=== PATIENT | female | born 1990 | race Caucasian/White ===

== ENCOUNTER 2023-06-20 18:50 | Observation (INO) | payer BC, SELFPAY ==
[2023-06-20 18:59] VITALS: BP 144/99; PULSE 79; RESP 28; TEMP 36.9; O2SAT 99; BMI 48.4
--- NOTE | 2023-06-20 19:27 | ED_ITS ---
HPI - Back Pain/Injury General Chief Complaint: Back Pain/Injury Stated Complaint: FLANK PAIN Time Seen by Provider: 06/20/23 19:26 Source: patient Source comment: Tearful Mode of arrival: Wheelchair Limitations: no limitations History of Present Illness HPI Narrative: presents complaining of left CVA pain. past history of kidney stones. pain radiates around to her groin. Pain associated with nausea and vomiting. States she is not . No urinary symptoms. No fever or chills. Related Data Home Medications Medication Instructions Recorded Confirmed buspirone 10 mg tablet 10 mg PO DAILY 06/20/23 06/20/23 cyanocobalamin (vitamin B-12) 1,000 mcg PO DAILY 06/20/23 06/20/23 1,000 mcg sublingual tablet venlafaxine 75 mg capsule,extended 75 mg PO DAILY 06/20/23 06/20/23 release 24 hr Allergies Allergy/AdvReac Type Severity Reaction Status Date / Time No Known Drug Allergies Allergy Verified 06/20/23 19:02 Review of Systems ROS Status of ROS 10 or more systems reviewed and unremarkable except as noted in history and below PFSH PFS Social History Smoking status: Current every day smoker Exam Constitutional Vital Signs, click to edit/add: Last Vital Signs Temp 98.4 F 06/20/23 18:59 Pulse 79 06/20/23 18:59 Resp 28 H 06/20/23 18:59 BP 144/99 H 06/20/23 18:59 Pulse Ox 99 06/20/23 18:59 O2 Del Method Room Air 06/20/23 18:59 Common normals: oriented x3 Other: mod distress. skin moist HENMT Common normals: normocephalic and head/scalp atraumatic Eye Common normals: EOMs intact bilaterally and conjunctivae normal Chest Common normals: inspection of chest normal, palpation of chest normal and inspection of breasts normal Respiratory Common normals: normal respiratory effort, no retractions and no use of accessory muscles Cardio Common normals: regular rate, regular rhythm, S1 normal heart sound and S2 normal heart sound GI Common normals: Normal to inspection, nondistended, normoactive bowel sounds present, soft to palpation and non-tender Back & Pelvis General back: CVA tenderness CVA tenderness: left Extremity Common normals: normal to inspection and full ROM Neuro Common normals: oriented x3, CN's II-XII intact bilaterally, moves all extremities and no focal motor deficits Psych Appearance: grossly normal Course Vital Signs Vital signs: Vital Signs Temperature 98.4 F 06/20/23 18:59 Pulse Rate 79 06/20/23 18:59 Respiratory Rate 28 H 06/20/23 18:59 Blood Pressure 144/99 H 06/20/23 18:59 Pulse Oximetry 99 06/20/23 18:59 Oxygen Delivery Method Room Air 06/20/23 18:59 Temperature 98.4 F 06/20/23 18:59 Pulse Rate 79 06/20/23 18:59 Respiratory Rate 28 H 06/20/23 18:59 Blood Pressure 144/99 H 06/20/23 18:59 Pulse Oximetry 99 06/20/23 18:59 Oxygen Delivery Method Room Air 06/20/23 18:59 MDM - Back Pain/Injury MDM Narrative Medical decision making narrative: patient presents with acute left CVA pain radiating into her groin. CT with evidence of 6.5mm stone left UVJ. Patient hydrated in the department and pain controlled. Patient was feeling better and even felt she could go home but when she changed position on the stretcher the pain has returned. UA with 10-20 WBC. Discussed with urologist Dr Patel and she will consult on the patient. Discussed with the Hospitalist Dr Barakat and the patient is accepted for admission Lab Data Labs: Lab Results 06/20/23 06/20/23 06/20/23 Range/Units 19:10 20:13 22:00 WBC 10.7 (4.0-11.0) 10^3/uL RBC 4.73 (4.20-5.40) 10^6/uL Hgb 13.4 (12.0-16.0) g/dL Hct 38.8 (36.0-48.0) % MCV 82.0 (81.0-99.0) fL MCH 28.3 (26.7-34.0) pg MCHC 34.5 (29.9-35.2) g/dL RDW 12.2 (11.0-15.0) % Plt Count 244 (150-450) 10^3/uL MPV 10.7 (9.5-13.5) fL Neut % (Auto) 58.0 (43.0-75.0) % Lymph % (Auto) 32.3 (20.5-60.0) % [place]ahan % (Auto) 6.9 (1.7-12.0) % Eos % (Auto) 2.0 (0.9-7.0) % Baso % (Auto) 0.5 (0.2-2.0) % Neut # (Auto) 6.2 (1.4-6.5) 10^3/uL Lymph # (Auto) 3.5 (1.2-3.8) 10^3/uL [place]ahan # (Auto) 0.7 (0.3-0.8) 10^3/uL Eos # (Auto) 0.2 (0.0-0.7) 10^3/uL Baso # (Auto) 0.1 (0.0-0.1) 10^3/uL Abs Immat Gran (auto) 0.03 (0.00-0.03) 10^3/uL Imm/Tot Granulo (auto) 0.3 (0.0-0.5) % Sodium 138 (136-145) mmol/L Potassium 3.8 (3.5-5.1) mmol/L Chloride 106 (98-107) mmol/L Carbon Dioxide 18.2 L (21.0-32.0) mmol/L Anion Gap 17.6 BUN 14.0 (7.0-18.0) mg/dL Creatinine 0.86 (0.55-1.02) mg/dL Est GFR ( Amer) >60 (>=60) Est GFR (Non-Af Amer) >60 (>=60) BUN/Creatinine Ratio 16.3 Glucose 94 (74-106) mg/dL Lactate 2.5 H* (0.4-2.0) mmol/L Calcium 8.7 (8.5-10.1) mg/dL Total Bilirubin 0.2 (0.2-1.0) mg/dL AST 13 L (15-37) U/L ALT 22 (14-59) U/L Alkaline Phosphatase 78 (46-116) U/L Total Protein 7.7 (6.4-8.2) g/dL Albumin 3.9 (3.4-5.0) g/dL Globulin 3.8 g/dL Albumin/Globulin Ratio 1.0 Lipase 143.0 (73.0-393.0) U/L Urine Color Lt. yellow (YELLOW) Urine Clarity Clear (CLEAR) Urine pH 5.5 (5.0-9.0) Ur Specific [place] 1.020 (1.005-1.025) Urine Protein Negative (NEG/TRACE) mg/dL Urine Glucose (UA) Negative (NEGATIVE) mg/dL Urine Ketones Negative (NEGATIVE) mg/dL Urine Occult Blood Small A (NEGATIVE) Urine Nitrite Positive A (NEGATIVE) Urine Bilirubin Negative (NEGATIVE) Urine Urobilinogen 0.2 (0.2-1.0) EU/dL Ur Leukocyte Esterase Negative (NEGATIVE) Urine RBC 0-2 (0-2) #/HPF Urine WBC 10-20 A (NONE SEEN) #/HPF Ur Squamous Epith Cells None seen (NONE/RARE) #/LPF Urine Crystals None seen (None Seen) #/HPF Urine Bacteria Large A (NONE SEEN) #/HPF Urine Casts None seen (NONE SEEN) #/LPF Urine Mucus None seen (NONE SEEN) Ur Culture Indicated? Yes Urine HCG, Qual Negative (NEGATIVE) 06/20/23 Range/Units 23:13 WBC (4.0-11.0) 10^3/uL RBC (4.20-5.40) 10^6/uL Hgb (12.0-16.0) g/dL Hct (36.0-48.0) % MCV (81.0-99.0) fL MCH (26.7-34.0) pg MCHC (29.9-35.2) g/dL RDW (11.0-15.0) % Plt Count (150-450) 10^3/uL MPV (9.5-13.5) fL Neut % (Auto) (43.0-75.0) % Lymph % (Auto) (20.5-60.0) % [place]ahan % (Auto) (1.7-12.0) % Eos % (Auto) (0.9-7.0) % Baso % (Auto) (0.2-2.0) % Neut # (Auto) (1.4-6.5) 10^3/uL Lymph # (Auto) (1.2-3.8) 10^3/uL [place]ahan # (Auto) (0.3-0.8) 10^3/uL Eos # (Auto) (0.0-0.7) 10^3/uL Baso # (Auto) (0.0-0.1) 10^3/uL Abs Immat Gran (auto) (0.00-0.03) 10^3/uL Imm/Tot Granulo (auto) (0.0-0.5) % Sodium (136-145) mmol/L Potassium (3.5-5.1) mmol/L Chloride (98-107) mmol/L Carbon Dioxide (21.0-32.0) mmol/L Anion Gap BUN (7.0-18.0) mg/dL Creatinine (0.55-1.02) mg/dL Est GFR ( Amer) (>=60) Est GFR (Non-Af Amer) (>=60) BUN/Creatinine Ratio Glucose (74-106) mg/dL Lactate 1.4 (0.4-2.0) mmol/L Calcium (8.5-10.1) mg/dL Total Bilirubin (0.2-1.0) mg/dL AST (15-37) U/L ALT (14-59) U/L Alkaline Phosphatase (46-116) U/L Total Protein (6.4-8.2) g/dL Albumin (3.4-5.0) g/dL Globulin g/dL Albumin/Globulin Ratio Lipase (73.0-393.0) U/L Urine Color (YELLOW) Urine Clarity (CLEAR) Urine pH (5.0-9.0) Ur Specific Six[place] (1.005-1.025) Urine Protein (NEG/TRACE) mg/dL Urine Glucose (UA) (NEGATIVE) mg/dL Urine Ketones (NEGATIVE) mg/dL Urine Occult Blood (NEGATIVE) Urine Nitrite (NEGATIVE) Urine Bilirubin (NEGATIVE) Urine Urobilinogen (0.2-1.0) EU/dL Ur Leukocyte Esterase (NEGATIVE) Urine RBC (0-2) #/HPF Urine WBC (NONE SEEN) #/HPF Ur Squamous Epith Cells (NONE/RARE) #/LPF Urine Crystals (None Seen) #/HPF Urine Bacteria (NONE SEEN) #/HPF Urine Casts (NONE SEEN) #/LPF Urine Mucus (NONE SEEN) Ur Culture Indicated? Urine HCG, Qual (NEGATIVE) Discharge Plan Discharge Chief Complaint: Back Pain/Injury Clinical Impression: Renal colic, UTI (urinary tract infection) Patient Disposition: Admitted as Observation
--- NOTE | 2023-06-20 19:29 | CT_ITS ---
The [address] [address] Patient Name: KENDELL GUALLPA MRN: [id number] date: 1990 Sex: F Assigned Patient Location: ER Current Patient Location: Accession/Order Number: [id number] Exam Date: 06/20/2023 19:58 Report Date: 06/20/2023 20:20 At the request of: DUC OBRIEN Procedure: CT abdomen pelvis wo con EXAM: CT abdomen pelvis wo con TECHNIQUE: Axial CT images were obtained of the abdomen and pelvis with intravenous contrast. Sagittal and coronal reformatted images were also obtained. Dose reduction techniques were achieved by using automated exposure control and/or adjustment of mA and/or kV according to patient size and/or use of iterative reconstruction technique. HISTORY: left kidney stone COMPARISON: 05/26/2022 FINDINGS: Lower chest: The lower lungs are clear. Liver: The liver is homogeneous with normal contours and normal size. Gallbladder: Status post cholecystectomy. No significant biliary dilatation. Pancreas: The pancreas is homogeneous without evidence for mass lesion or inflammation. Spleen: The spleen is unremarkable without evidence for mass lesion. Adrenal glands: The adrenal glands are unremarkable Kidneys and bladder: Unremarkable unenhanced right kidney. Mild left-sided hydronephrosis and perinephric edema secondary to a 6.5 mm stone of the left ureteropelvic junction. The right ureter is normal caliber. The urinary bladder is unremarkable. GI Tract: Prior gastric bypass. Visualized small bowel is unremarkable without evidence for obstruction or active inflammation. The appendix is unremarkable.The visualized portion of the large bowel is unremarkable. Reproductive: Unremarkable Lymph nodes: No retroperitoneal or abdominal lymphadenopathy. Vascular: The aorta is not dilated. Peritoneum: No free intraperitoneal air or fluid. No acute inflammation. Abdominal wall: Unremarkable without acute abnormality. CT/CT abdomen pelvis wo con IMPRESSION: 6.5 mm stone at the left ureteropelvic junction resulting in mild left-sided hydronephrosis. Electronically authenticated by: LYNN BINGHAM Date: 06/20/2023 20:20
[2023-06-20 19:40] LABS: Basophils Absolute Auto 0.1 10^3/uL (0.0-0.1); Basophils Percent Auto 0.5 % (0.2-2.0); Eosinophils Absolute Auto 0.2 10^3/uL (0.0-0.7); Hematocrit 38.8 % (36.0-48.0); Hemoglobin 13.4 g/dL (12.0-16.0); Immature Granulocytes Abs Auto 0.03 10^3/uL (0.00-0.03); Immature Granulocytes Pct Auto 0.3 % (0.0-0.5); Lymphocytes Absolute Auto 3.5 10^3/uL (1.2-3.8); Lymphocytes Percent Auto 32.3 % (20.5-60.0); Mean Corpuscular HGB Conc 34.5 g/dL (29.9-35.2); Mean Corpuscular Hemoglobin 28.3 pg (26.7-34.0); Mean Platelet Volume 10.7 fL (9.5-13.5); Monocytes Absolute Auto 0.7 10^3/uL (0.3-0.8); Monocytes Percent Auto 6.9 % (1.7-12.0); Neutrophils Absolute Auto 6.2 10^3/uL (1.4-6.5); Platelet Count 244 10^3/uL (150-450); Red Blood Count 4.73 10^6/uL (4.20-5.40); Red Cell Distribution Width 12.2 % (11.0-15.0); White Blood Count 10.7 10^3/uL (4.0-11.0)
[2023-06-20] MEDS: 0.9 % SODIUM CHLORIDE 1,000 ML 999 ML IV ×2 (19:47→21:04)
[2023-06-20] MEDS: FENTANYL CITRATE/PF 100 MCG/2 ML VIAL IV (19:47)
[2023-06-20] MEDS: ONDANSETRON PF 4 MG/2 ML VIAL IV (19:53)
[2023-06-20 20:06] LABS: Alanine Aminotransferase 22 U/L (14-59); Albumin Level 3.9 g/dL (3.4-5.0); Alkaline Phosphatase 78 U/L (46-116); Anion Gap 17.6; Aspartate Amino Transferase 13 U/L (15-37); BUN Creatinine Ratio 16.3; Bilirubin Total 0.2 mg/dL (0.2-1.0); Calcium 8.7 mg/dL (8.5-10.1); Carbon Dioxide 18.2 mmol/L (21.0-32.0); Chloride 106 mmol/L (98-107); Estimated GFR (African America >60 (>=60); Estimated GFR (Non-African Ame >60 (>=60); Globulin 3.8 g/dL; Glucose 94 mg/dL (74-106); Potassium 3.8 mmol/L (3.5-5.1); Sodium 138 mmol/L (136-145); Total Protein 7.7 g/dL (6.4-8.2)
[2023-06-20 20:58] LABS: Lactate/Lactic Acid 2.5 mmol/L (0.4-2.0)
[2023-06-20] MEDS: TAMSULOSIN HCL 0.4 MG CAPSULE PO (21:00)
[2023-06-20] MEDS: ORPHENADRINE 60 MG/ 2 ML VIAL IV (21:00)
[2023-06-20] MEDS: KETOROLAC TROMETHAMINE 30 MG/ML VIAL IVP (21:53)
[2023-06-20 22:11] LABS: Bilirubin Urine NEGATIVE (NEGATIVE); Blood Urine SMALL (NEGATIVE); Clarity Urine CLEAR (CLEAR); Color Urine LT. YELLOW (YELLOW); Glucose Urine UA NEGATIVE (NEGATIVE); Ketones Urine NEGATIVE (NEGATIVE); Leukocyte Esterase Urine NEGATIVE (NEGATIVE); Nitrite Urine POSITIVE (NEGATIVE); Protein Urine NEGATIVE (NEG/TRACE); Urine Microscopic Indicated YES; Urobilinogen Urine 0.2 EU/dL (0.2-1.0); pH Urine 5.5 (5.0-9.0)
[2023-06-20 22:18] LABS: Bacteria Urine LARGE #/HPF (NONE SEEN); Mucus Urine NONE SEEN (NONE SEEN); RBC Urine 0-2 #/HPF (0-2)
[2023-06-20 22:19] LABS: Cast Seen? NONE SEEN #/LPF (NONE SEEN); Crystals Seen? None Seen #/HPF (None Seen); HCG Qualitative Urine* NEGATIVE (NEGATIVE); Squamous Epithelial Cell Urine NONE SEEN #/LPF (NONE/RARE); Urine Culture Indicated YES
[2023-06-20 23:39] LABS: Lactate/Lactic Acid 1.4 mmol/L (0.4-2.0)
[2023-06-21] VITALS (11 sets, daily range): BP systolic 101–158; BP diastolic 71–86; PULSE 89–106; RESP 12–24; TEMP 36.4–36.8; O2SAT 92–98; BMI 50.0
[2023-06-21] MEDS: FENTANYL CITRATE/PF 100 MCG/2 ML VIAL IV ×2 (00:44→04:25)
[2023-06-21] MEDS: SULFAMETHOXAZOLE/TRIMETHOPRIM 800-160 MG TABLET 1 TAB PO (02:56)
--- NOTE | 2023-06-21 05:18 | W.PM.TELEPN ---
Progress Note: Subjective Subjective Interval history: Left flank pain, constant, severe, nonradiating, alleviated by narcotic analgecs HPI: This is a very pleasant 32 years old usually healthy white female who presents with above complaints. Patient stating that pain started suddenly when she was about to leave the house and go to the movie theater. Pain started gradually and then intensified to the worst pain of her life. Patient has had kidney stones in the past. On evaluation in the emergency room she found a rather large kidney stone on the left side. Urinalysis showed some signs of pyuria. Urologist on-call, Dr Patel consulted and going to see patient in the morning. Recommended pain management, keep n.p.o. for possible procedure.. Exam Narrative Exam Narrative: Physical Exam: Not in distress, pleasant, lucid, cooperative, Head - atraumatic, eyes - pupils equal, round, reactive to light, extra ocular movement intact, MMM Neck - supple, thyroid not enlarged, LN not palpated Lungs - clear to auscultation, no dullness on percussion CVS - heart sounds S1, S2, no additional murmurs gallop, regular rate and rhythm Gastrointestinal?abdomen is soft, non-tender, non-distended, no organomegaly, positive bowel sounds Left CVA tenderness Extremities no clubbing, cyanosis or edema Neurological?cranial nerve II?XII grossly intact, no meningeal signs, no cerebellar signs, no sensory deficit Musculoskeletal - joints, no effusions, ROM preserved Dermatological - the skin dry, warm, no rashes Psychiatric?patient is AAO X3, patient has normal affect Constitutional Vital Signs, click to edit/add: Last Vital Signs Temp 98.3 F 06/21/23 04:17 Pulse 94 H 06/21/23 04:17 Resp 20 06/21/23 04:17 BP 158/82 H 06/21/23 04:17 Pulse Ox 92 L 06/21/23 04:17 O2 Del Method Room Air 06/21/23 04:17 Progress Note: Objective Labs Labs: Short CBC 06/20/23 Range/Units 19:10 WBC 10.7 (4.0-11.0) 10^3/uL Hgb 13.4 (12.0-16.0) g/dL Hct 38.8 (36.0-48.0) % Plt Count 244 (150-450) 10^3/uL BMP 06/20/23 19:10 Sodium 138 Potassium 3.8 Chloride 106 Carbon Dioxide 18.2 L BUN 14.0 Creatinine 0.86 Glucose 94 Calcium 8.7 Liver Function 06/20/23 Range/Units 19:10 Total Bilirubin 0.2 (0.2-1.0) mg/dL AST 13 L (15-37) U/L ALT 22 (14-59) U/L Alkaline Phosphatase 78 (46-116) U/L Albumin 3.9 (3.4-5.0) g/dL Urine 06/20/23 Range/Units 22:00 Urine Color Lt. yellow (YELLOW) Urine Clarity Clear (CLEAR) Urine pH 5.5 (5.0-9.0) Ur Specific [place] 1.020 (1.005-1.025) Urine Protein Negative (NEG/TRACE) mg/dL Urine Glucose (UA) Negative (NEGATIVE) mg/dL Progress Note: A&P Assessment and Plan (1) Renal colic: Assessment and Plan: Awake to preserve the alcoholic. Nephrolithiasis with a rather large kidney stone. Symptoms management. Follow-up with urologist for further recommendations (2) UTI (urinary tract infection): Assessment and Plan: Patient does not appear to be septic. Continue with IV fluids. Continue with empiric, broad-spectrum antibiotics. Follow-up cultures. Adjust as needed. (3) Gastric bypass status for obesity: Assessment and Plan: Defer to outpatient management Plan As the provider for the telehealth service, I attest that I introduced myself to the patient, provided my credentials, disclosed by location and determined that based on a review of the patient's chart and discussion with members of the patient's treatment team, telemedicine via real-time, 2 way, and interactive audio and video platform is an appropriate and effective means of providing the service. ?The patient and I mutually agree this visit is appropriate for telemedicine. ?The virtual encounter was taken place from? [place], [place]. ?The encounter took approximately 35 minutes. ?The nurse was present during the entire time and I was able to move the stethoscope in appropriate directions. ?The patient was evaluated at the Hospital ? Portions of this note may be dictated using [employer] voice recognition software. Variances in spelling and vocabulary are possible and unintentional. Not all errors may be caught and/or corrected. Please notify the author if any discrepancies are noted and/or if the meaning of any statement is unclear.? ? Patient verbally consented for treatment via video visit with patient currently located at [facility] and provider located in [place]. Telemedicine Attestation Telemedicine Attestation I conducted this encounter from [[place]] via secure live, [id number] video conference with the patient, located at [facility] with [renal colic]. Prior to the interview, the risks and benefits of telemedicine were discussed with the patient and verbal consent was obtained.
[2023-06-21] MEDS: 0.9 % SODIUM CHLORIDE 1,000 ML 100 ML IV (05:47)
[2023-06-21] MEDS: CEFTRIAXONE 1,000 MG in 0.9 % SODIUM CHLORIDE 50 ML 100 MG IV (05:47)
[2023-06-21 05:51] LABS: Basophils Percent Auto 0.2 % (0.2-2.0); Eosinophils Percent Auto 0.1 % (0.9-7.0); Hematocrit 37.3 % (36.0-48.0); Hemoglobin 12.7 g/dL (12.0-16.0); Immature Granulocytes Abs Auto 0.06 10^3/uL (0.00-0.03); Immature Granulocytes Pct Auto 0.5 % (0.0-0.5); Lymphocytes Absolute Auto 0.5 10^3/uL (1.2-3.8); Lymphocytes Percent Auto 3.5 % (20.5-60.0); Mean Corpuscular Hemoglobin 28.5 pg (26.7-34.0); Mean Corpuscular Volume 83.8 fL (81.0-99.0); Mean Platelet Volume 10.2 fL (9.5-13.5); Monocytes Absolute Auto 0.6 10^3/uL (0.3-0.8); Monocytes Percent Auto 4.3 % (1.7-12.0); Neutrophils Absolute Auto 12.1 10^3/uL (1.4-6.5); Neutrophils Percent Auto 91.4 % (43.0-75.0); Platelet Count 178 10^3/uL (150-450); Red Blood Count 4.45 10^6/uL (4.20-5.40); Red Cell Distribution Width 12.3 % (11.0-15.0); White Blood Count 13.3 10^3/uL (4.0-11.0)
[2023-06-21] MEDS: ONDANSETRON PF 4 MG/2 ML VIAL IV (06:19)
[2023-06-21] MEDS: HYDROMORPHONE HCL 0.5 MG/0.5 ML SYRINGE IV (06:19)
[2023-06-21 06:26] LABS: Alanine Aminotransferase 19 U/L (14-59); Albumin Level 3.6 g/dL (3.4-5.0); Alkaline Phosphatase 74 U/L (46-116); Anion Gap 12.7; Aspartate Amino Transferase 15 U/L (15-37); BUN Creatinine Ratio 14.3; Bilirubin Total 0.5 mg/dL (0.2-1.0); Calcium 8.5 mg/dL (8.5-10.1); Carbon Dioxide 25.4 mmol/L (21.0-32.0); Chloride 103 mmol/L (98-107); Estimated GFR (African America >60 (>=60); Estimated GFR (Non-African Ame >60 (>=60); Globulin 3.6 g/dL; Glucose 116 mg/dL (74-106); Potassium 4.1 mmol/L (3.5-5.1); Sodium 137 mmol/L (136-145); Total Protein 7.2 g/dL (6.4-8.2)
--- NOTE | 2023-06-21 08:35 | P.CN_ITS ---
Consult Note: HPI Data of Consult Patient: new to practice Consult date: 06/21/23 Requesting Physician: Selwyn Dunham MD Primary Care Provider: Non-Staff Physician, MD Consult Narrative Reason for consult: left UPJ stone with hydro, UTI and uncontrolled pain Narrative: 32 year old female with a history of nephrolithiasis presented to the ER with acute left flank pain, uncontrolled nausea/emesis and chills since yesterday. CT AP wo contrast revealed a 6.5 mm left UPJ stone with mild hydronephrosis. Mild leukocytosis 13, Cr wnl, UA suggestive of UTI + nitrites, leuks and bacteria. She received empiric IV ceftriaxone. She was afebrile, vitals stable here however due to uncontrolled pain, she was admitted to the hospitalist service and Urology was consulted for further management. Patient continues to have uncontrolled pain, PO intolerance and chills. Previously has been able to pass stones. History of recurrent UTIs however none in a while. PSH gastric bypass. cc:: CC: Selwyn Dunham MD Review of Systems ROS Status of ROS 10 or more systems reviewed and unremarkable except as noted in history and below Constitutional Reports: chills; Denies: fever Eyes Denies: change in vision or blurry vision Ears, nose, mouth, and throat Denies: throat pain or throat swelling Cardiovascular Denies: chest pain or palpitations Respiratory Denies: shortness of breath or cough Gastrointestinal Reports: abdominal pain (LLQ), nausea and vomiting Genitourinary Denies: painful urination, urinary incontinence or blood in urine Musculoskeletal Reports: back pain; Denies: extremity pain Integumentary/Breast Denies: rash or itching Neurological Denies: headache, numbness in extremities or weakness in extremities Psychiatric Denies: anxiety or memory loss Endocrine Denies: excessive urination or excessive thirst Hematologic/Lymphatic Denies: easy bruising or easy bleeding [facility] Medical History Surgical History Family History Father Family history of CHF (congestive heart failure) Family history of cancer Family history of diabetes mellitus Family history of myocardial infarction Aunt Family history of cancer Family history of diabetes mellitus Grandfather Family history of stroke Social History Within the past year, how often did you have a drink containing alcohol: never Within the past year, how often did you have six or more drinks on one occasion: never Score interpretation: A score less than 3 is consistent with normal alcohol consumption. 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[employer] ) Highest level of school completed/degree received: some college, no degree Are you now , , , , never or living with a partner: In a typical week, how many times do you talk on the telephone with family, frie nds, or neighbors: 3 or more times per week How often do you get together with friends or relatives: once per week How often do you attend moravian or mormonism services: never Do you belong to any clubs or organizations such as moravian groups unions, [employer] or athletic groups, or school groups: no Total score: 2 Score interpretation: A score of greater than or equal to 2 indicates the lowest level of social isolation. Little interest or pleasure in doing things: several days Feeling down, depressed, or hopeless: several days Feel stressed/tense/nervous/anxious/difficulty sleeping: not at all Meds Home Medications and Allergies Home Medications Medication Instructions Recorded Confirmed Type buspirone 10 mg tablet 10 mg PO TID 06/20/23 06/21/23 History cyanocobalamin (vitamin B-12) 1,000 mcg PO DAILY 06/20/23 06/21/23 History 1,000 mcg sublingual tablet venlafaxine 75 mg capsule,extended 75 mg PO DAILY 06/20/23 06/21/23 History release 24 hr hydroxyzine pamoate 25 mg capsule 25 mg PO BID 06/21/23 06/21/23 History Allergies Allergy/AdvReac Type Severity Reaction Status Date / Time No Known Drug Allergies Allergy Verified 06/20/23 19:02 Exam Constitutional Vital Signs, click to edit/add: Last Vital Signs Temp 98.3 F 06/21/23 04:17 Pulse 95 H 06/21/23 07:59 Resp 20 06/21/23 04:17 BP 158/82 H 06/21/23 04:17 Pulse Ox 92 L 06/21/23 04:17 O2 Del Method Room Air 06/21/23 04:17 Common normals: no apparent distress, oriented x3 and alert HENMT Common normals: normocephalic and head/scalp atraumatic Eye Common normals: PERRL and EOMs intact bilaterally Neck & C-Spine Common normals: full ROM General: normal visual inspection Chest Common normals: inspection of chest normal Chest: symmetrical chest wall rise Respiratory Common normals: normal respiratory effort Effort & inspection: able to speak in complete sentences Cardio Rate: regular rate Rhythm: regular rhythm GI Inspection: no abdominal distension Palpation: soft and tender (LLQ) Bladder/kidney exam: bladder normal to palpation and CVA tenderness on the left Extremity Common normals: normal to inspection, no calf tenderness and no pedal edema Neuro Common normals: oriented x3, CN's II-XII intact bilaterally, moves all extremities, no focal motor deficits and no sensory deficits noted Psych Common normals: mental status grossly normal, cooperative and affect normal Attitude: calm Results Labs Labs: Short CBC 06/20/23 06/21/23 Range/Units 19:10 05:40 WBC 10.7 13.3 H (4.0-11.0) 10^3/uL Hgb 13.4 12.7 (12.0-16.0) g/dL Hct 38.8 37.3 (36.0-48.0) % Plt Count 244 178 (150-450) 10^3/uL BMP 06/20/23 06/21/23 19:10 05:40 Sodium 138 137 Potassium 3.8 4.1 Chloride 106 103 Carbon Dioxide 18.2 L 25.4 BUN 14.0 14.0 Creatinine 0.86 0.98 Glucose 94 116 H Calcium 8.7 8.5 Liver Function 06/20/23 06/21/23 Range/Units 19:10 05:40 Total Bilirubin 0.2 0.5 (0.2-1.0) mg/dL AST 13 L 15 (15-37) U/L ALT 22 19 (14-59) U/L Alkaline Phosphatase 78 74 (46-116) U/L Albumin 3.9 3.6 (3.4-5.0) g/dL Urine 06/20/23 Range/Units 22:00 Urine Color Lt. yellow (YELLOW) Urine Clarity Clear (CLEAR) Urine pH 5.5 (5.0-9.0) Ur Specific [place] 1.020 (1.005-1.025) Urine Protein Negative (NEG/TRACE) mg/dL Urine Glucose (UA) Negative (NEGATIVE) mg/dL Imaging CT scan - abdomen: My impression: 6.5 mm stone at the left ureteropelvic junction with mild left-sided hydronephrosis. No other kidney stones Radiologist's impression: MRN: [id number]? ? date: 1990? ? Sex: F Assigned Patient Location: ER Current Patient Location: ER Accession/Order Number: [id number] Exam Date: 06/20/2023? 19:58? ? Report Date: 06/20/2023? 20:20 ? At the request of: KARISHMA OBRIEN? ? Procedure:? CT abdomen pelvis wo con ? EXAM: CT abdomen pelvis wo con ? TECHNIQUE: Axial CT images were obtained of the abdomen and pelvis with intravenous contrast. Sagittal and coronal reformatted images were also obtained. Dose reduction techniques were achieved by using automated exposure control and/or adjustment of mA and/or kV according to patient size and/or use ? of iterative reconstruction technique. ? HISTORY: left kidney stone ? COMPARISON: 05/26/2022 ? ? FINDINGS: ? Lower chest: The lower lungs are clear. ? Liver: The liver is homogeneous with normal contours and normal size. ? Gallbladder: Status post cholecystectomy. No significant biliary dilatation. ? Pancreas: The pancreas is homogeneous without evidence for mass lesion or inflammation. ? Spleen: The spleen is unremarkable without evidence for mass lesion. ? Adrenal glands: The adrenal glands are unremarkable ? Kidneys and bladder: Unremarkable unenhanced right kidney. Mild left-sided hydronephrosis and perinephric edema secondary to a 6.5 mm stone of the left ureteropelvic junction. The right ureter is normal caliber. The urinary bladder is unremarkable. ? GI Tract: Prior gastric bypass. Visualized small bowel is unremarkable without ? evidence for obstruction or active inflammation. The appendix is unremarkable.The visualized portion of the large bowel is unremarkable. ? Reproductive: Unremarkable ? Lymph nodes: No retroperitoneal or abdominal lymphadenopathy. ? Vascular: The aorta is not dilated. ? Peritoneum: No free intraperitoneal air or fluid. No acute inflammation. ? Abdominal wall: Unremarkable without acute abnormality. ? ? CT/CT abdomen pelvis wo con IMPRESSION: ? 6.5 mm stone at the left ureteropelvic junction resulting in mild left-sided hydronephrosis. ? ? Electronically authenticated by: LYNN? ZACHERY ? Date: 06/20/2023? 20:20 ? ? Assessment and Plan Assessment and Plan (1) Ureteral stone with hydronephrosis: (2) UTI (urinary tract infection): (3) Renal colic: (4) Gastric bypass status for obesity: Plan 32 year old female as above with uncontrolled nausea, emesis and pain admitted with a 6.5 mm left ureteropelvic junction stone with mild hydronephrosis and UTI. After discussion of risks/benefits of management options, she elected to proceed to the OR for cystoscopy, left retrograde pyelogram, left ureteral stent placement. She understands the stone will be treated at a later date once her infection has resolved. Risks were discussed including but not limited to bleeding, pain, infection, damage to surrounding structures, inability to treat the stone/place a stent, and need for additional procedures. The patient understands the stent is not permanent and needs to be removed or exchanged within 3 months to prevent encrustation, infection, invasive procedures and/or permanent renal damage.
--- NOTE | 2023-06-21 09:08 | P.URON_ITS ---
Urology Surgery Operative Note Operative Note Procedure Date: 06/21/23 Time Out Performed: yes Pre-op Diagnosis: 1. Left ureteropelvic junction stone with hydronephrosis 2. Urinary tract infection 3. Renal colic Post-op Diagnosis: Same Procedures performed: Cystoscopy, left retrograde pyelogram, left ureteral stent placement Anesthesia: GETA (LMA, Dr. Torres Maynard) Primary Surgeon: Purnima Patel Complications: none Estimated blood loss (mL): 0 Findings: Squamous metaplasia along trigone. Mildly cloudy urine effluxing from left ureter. Mild hydronephrosis with filling defect in left proximal ureter consistent with known stone. No extravasation. Return of mild white debris after stent placement Specimens: none Drains: 6Fr x 22-30 cm JJ left ureteral stent Incision: none Indications for Procedures: 32 year old female with uncontrolled nausea, emesis and pain admitted with a 6.5 mm left ureteropelvic junction stone with mild hydronephrosis and UTI. After discussion of risks/benefits of management options, she elected to proceed to the OR for cystoscopy, left retrograde pyelogram, left ureteral stent placement. She understands the stone will be treated at a later date once her infection has resolved. Risks were discussed including but not limited to bleeding, pain, infection, damage to surrounding structures, inability to place a stent, and need for additional procedures. The patient understands the stent is not permanent and needs to be removed or exchanged within 3 months to prevent encrustation, infection, invasive procedures and/or permanent renal damage. Detailed description of Procedure: After informed consent was obtained, the patient was brought to the operating room and transferred onto the operating table in supine position. Sequential compression devices were placed on bilateral lower extremities. The patient received the appropriate dose of preoperative IV antibiotics and general anesthesia LMA was induced. They were positioned in modified dorsolithotomy with the appropriate pressure points padded, prepped, and draped in the usual sterile fashion for this procedure. An operative safety timeout was performed confirming the patient's identity, laterality and procedure, and all present agreed to proceed. I began by inserting a 22 [place]ian rigid cystoscope with 30 degree lens into the patient's urethra and bladder without difficulty. There were no bladder tumors, lesions or foreign bodies. Bilateral ureteral orifices were orthotopic and patent. I turned my attention to the left ureteral orifice and a 6- [place]ian open- ended catheter was inserted into the ureteral orifice and dilute contrast was injected for retrograde pyelogram with findings above. A sensor wire was inserted into the ureter up to the renal pelvis confirmed on fluoroscopy. A 6Fr x 22-30cm JJ variable length ureteral stent was advanced over the wire, noting adequate curl in the renal pelvis and bladder on fluoroscopic and direct visualization. The bladder was irrigated until clear and inspected one final time to ensure adequate position of stent and no undue trauma to the bladder was done. The bladder was drained and the cystoscope was removed. The patient tolerated the procedure well without complication. The patient was awakened from anesthesia and sent to PACU in stable condition. Plan: Return to floor, cont empiric abx, complete culture sensitive abx x 10 days. Ok to dc home later today if pt remains afebrile, pain controlled. Follow up in the office in 1-2 weeks with KUB to discuss definitive stone treatment. Other Provider present: No Post Operative care instructions: See discharge instructions Attending Doc Confirm Attending Attestation: Yes
--- NOTE | 2023-06-21 10:04 | PC.NURSE ---
0922- Patient upto BR and voids moderate amount of slightly blood tinged urine
--- NOTE | 2023-06-21 11:13 | P.HP_ITS ---
H&P: HPI History of Present Illness Chief complaint: FLANK PAIN Narrative: Pt with w hx of gastric bypass, kidney stones- presented with flank pain - found to have mild hydronephrosis due to 6.5 mm stone PFSH PFSH Medical History Surgical History Family History Father Family history of CHF (congestive heart failure) Family history of cancer Family history of diabetes mellitus Family history of myocardial infarction Aunt Family history of cancer Family history of diabetes mellitus Grandfather Family history of stroke Social History Within the past year, how often did you have a drink containing alcohol: never Within the past year, how often did you have six or more drinks on one occasion: never Score interpretation: A score less than 3 is consistent with normal alcohol consumption. 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 ) Highest level of school completed/degree received: some college, no degree Are you now , , , , never or living with a partner: In a typical week, how many times do you talk on the telephone with family, friends, or neighbors: 3 or more times per week How often do you get together with friends or relatives: once per week How often do you attend methodist or catholic services: never Do you belong to any clubs or organizations such as methodist groups unions, fraternal or athletic groups, or school groups: no Total score: 2 Score interpretation: A score of greater than or equal to 2 indicates the lowest level of social isolation. Little interest or pleasure in doing things: several days Feeling down, depressed, or hopeless: several days Feel stressed/tense/nervous/anxious/difficulty sleeping: not at all Meds Home Medications and Allergies Home Medications Medication Instructions Recorded Confirmed Type buspirone 10 mg tablet 10 mg PO TID 06/20/23 06/21/23 History cyanocobalamin (vitamin B-12) 1,000 mcg PO DAILY 06/20/23 06/21/23 History 1,000 mcg sublingual tablet venlafaxine 75 mg capsule,extended 75 mg PO DAILY 06/20/23 06/21/23 History release 24 hr ciprofloxacin HCl 500 mg tablet 500 mg PO BID #20 tabs 06/21/23 Rx (Cipro) hydroxyzine pamoate 25 mg capsule 25 mg PO BID 06/21/23 06/21/23 History hyoscyamine sulfate 0.125 mg 0.125 mg PO Q6H #20 tabs 06/21/23 Rx sublingual tablet (Levsin/SL) oxybutynin chloride 5 mg tablet 5 mg PO TID PRN bladder spasms, 06/21/23 Rx stent pain #90 tabs tamsulosin 0.4 mg capsule 0.4 mg PO DAILY PRN stent pain #30 06/21/23 Rx caps Allergies Allergy/AdvReac Type Severity Reaction Status Date / Time No Known Drug Allergies Allergy Verified 06/20/23 19:02 Exam Constitutional Vital Signs, click to edit/add: Last Vital Signs Temp 97.6 F 06/21/23 09:10 Pulse 89 06/21/23 09:35 Resp 20 06/21/23 09:35 BP 129/80 06/21/23 09:30 Pulse Ox 96 06/21/23 10:44 O2 Del Method Room Air 06/21/23 10:44 Documenting provider has reviewed patient's vital signs: yes Common normals: no apparent distress HENPR Common normals: normocephalic and head/scalp atraumatic Chest Common normals: inspection of chest normal Respiratory Common normals: normal respiratory effort Cardio Common normals: regular rate, regular rhythm and no murmurs Results Labs Labs: Short CBC 06/20/23 06/21/23 Range/Units 19:10 05:40 WBC 10.7 13.3 H (4.0-11.0) 10^3/uL Hgb 13.4 12.7 (12.0-16.0) g/dL Hct 38.8 37.3 (36.0-48.0) % Plt Count 244 178 (150-450) 10^3/uL BMP 06/20/23 06/21/23 19:10 05:40 Sodium 138 137 Potassium 3.8 4.1 Chloride 106 103 Carbon Dioxide 18.2 L 25.4 BUN 14.0 14.0 Creatinine 0.86 0.98 Glucose 94 116 H Calcium 8.7 8.5 Liver Function 06/20/23 06/21/23 Range/Units 19:10 05:40 Total Bilirubin 0.2 0.5 (0.2-1.0) mg/dL AST 13 L 15 (15-37) U/L ALT 22 19 (14-59) U/L Alkaline Phosphatase 78 74 (46-116) U/L Albumin 3.9 3.6 (3.4-5.0) g/dL Urine 06/20/23 Range/Units 22:00 Urine Color Lt. yellow (YELLOW) Urine Clarity Clear (CLEAR) Urine pH 5.5 (5.0-9.0) Ur Specific [place] 1.020 (1.005-1.025) Urine Protein Negative (NEG/TRACE) mg/dL Urine Glucose (UA) Negative (NEGATIVE) mg/dL Assessment and Plan Assessment and Plan (1) Ureteral stone with hydronephrosis: (2) UTI (urinary tract infection): (3) Renal colic: (4) Gastric bypass status for obesity: Plan Sinus tachycardia, respiratory distress, elevated hypertension, chills, leukocytosis, positive lactate, abnormal UA secondary to 6.5 mm stone resulting in mild hydronephrosis, resulting in sepsis-Stent place d if stable later today - discharge to home on ORal AB, follow up with urology per protocol - meds see list
[2023-06-21] MEDS: HYOSCYAMINE SULFATE 0.125 MG TAB.SUBL SL (11:39)
[2023-06-21] MEDS: VENLAFAXINE HCL ER 75 MG CAPSULE PO (11:40)
[2023-06-21] MEDS: ACETAMINOPHEN 325 MG TABLET 650 MG PO (11:40)
[2023-06-21] MEDS: BUSPIRONE HCL 10 MG TABLET PO (11:40)
[2023-06-21] MEDS: TAMSULOSIN HCL 0.4 MG CAPSULE PO (11:41)
[2023-06-21] MEDS: CIPROFLOXACIN IN 5 % DEXTROSE 400 MG/200 ML PIGGYBACK IV (11:42)
--- NOTE | 2023-06-22 15:16 | CM.DCFOLLOWU ---
Person spoke with:patient How are you feeling? pain How is your pain? pain, headache, and still having pain when using restroom Did you understand your discharge instructions? yes Do you have any questions about your discharge instructions? no Were you given any prescriptions at discharge? yes Were you able to get your prescriptions filled? yes Do you understand how to take your medications as ordered? yes Do you have any questions about your follow up appointment and do you plan to keep your follow up appointment? no questions, was going to return to work today, but called Dr. Patel's office and got doctor's excuse, follow up next week June 30. Advised to reach out if pain continue to worsen or go to emergency room. Is there anything else that you would like to discuss? no Questions/Comments/Concerns/Other:
== END 2023-06-21 15:20 | disposition home or self-care (01) ==
LOC: ER 06-21 03:19 → MS 06-21 03:55
PROVIDERS: Urology; Admitting Provider Internal Medicine; Emergency Provider Internal Medicine; Visit Provider Family Medicine
PROC: (CPT 52332; principal; 2023-06-21 08:30)
DX: N13.6 Pyonephrosis (principal); F17.210 Nicotine dependence, cigarettes, uncomplicated; Z98.84 Bariatric surgery status; B96.1 Klebsiella pneumoniae [K. pneumoniae] as the cause of diseases classified elsewhere; Z87.442 Personal history of urinary calculi; Z79.899 Other long term (current) drug therapy; Z87.440 Personal history of urinary (tract) infections
CPT/HCPCS: 52332; 36415; 74176; 74420; 80053; 81001; 81003; 83605; 83690; 84703; 85025; 87086; 87150; 87186; 94761; 96361; 96374; 96375; 96376; 99285; C1874; G0378; J1170; J2704; Q3014